=== PATIENT | female | born 1940 | race Caucasian/White ===

== ENCOUNTER 2016-08-11 12:29 | Emergency (ER) | payer MEDICARE, BC ==
--- NOTE | 2016-08-11 13:34 | ERRECORD ---
[facility] EMERGENCY RECORD HPI URI (13:11 BGOE) CHIEF COMPLAINT: Patient presents for evaluation of nasal congestion, Patient presents for evaluation of cough. HISTORIAN: History provided by patient, flu like symptoms started yesterday. f/c/aches/jensen/cough. shima po. fatigue. did get flu shot but has had recent exposure. LOCATION: Symptoms are generalized. QUALITY: Pain is dull in nature, described as aching. SEVERITY: Maximum severity of symptoms mild, Currently symptoms are mild. TIME COURSE: Sudden onset of symptoms, There has been no change in the patient's symptoms over time. ASSOCIATED WITH: No associated chest pain, Associated with chills, Associated with fever, Associated with headache, No associated neck pain, No associated shortness of breath. EXACERBATED BY: Patient's condition exacerbated by nothing. RELIEVED BY: Patient's condition relieved by nothing. ROS (13:12 BGOE) CONSTITUTIONAL: Historian reports chills, reports fatigue, reports fever. EYES: Negative eye review of systems. ENT: Historian reports rhinorrhea, reports sore throat. CARDIOVASCULAR: Historian denies chest pain. RESPIRATORY: Historian reports cough. GI: Historian denies abdominal pain. NEUROLOGIC: Historian denies dizziness. PSYCHIATRIC: Negative psychiatric review of systems. PAST MEDICAL HISTORY MEDICAL HISTORY: Past medical history includes gastrointestinal disease, diverticulosis, Past medical history includes history of hypertension, which has been treated, Patient is compliant, Past medical history includes renal disease, kidney stone(s). ([facility] Aug 11, 2016 12:41 JPER) FEMALE SURGICAL HISTORY: KIDNEY STENTS, Surgical history of appendectomy, Surgical history of cholecystectomy, Surgical history of hysterectomy. ([facility] Aug 11, 2016 12:41 JPER) PSYCHIATRIC HISTORY: Notes: DENIES. ([facility] Aug 11, 2016 12:41 JPER) SOCIAL HISTORY: Patient denies alcohol use, Patient denies drug use, Patient has no smoking history. ([facility] Aug 11, 2016 12:41 JPER) NOTES: Nursing records reviewed, Agree with nursing records, Medication list reviewed. (13:14 BGOE) KNOWN ALLERGIES ALLERGIES: (Unconfirmed) Codeine (Unconfirmed) &a-1R&a+25V*p+0X*f6676R*c152B*c15G*c2P*p-0X&a-25V&a+1RName: Sylvia Lama : 1940 F75 MedRec: [id number] AcctNum: [id number] Prepared: Sat Aug 11, 2016 13:58 by Interface Page 1 of 3 pMD [facility] EMERGENCY RECORD codeine sulfate: Reaction: Hives FOOD ALLERGIES: (Unconfirmed) LATEX ALLERGY? (Unconfirmed) CURRENT MEDICATIONS (12:42 JPER) lisinopril: TABLET : Strength - 10 mg : ORAL Patient Dose: 5 once a day (in the morning). VITAL SIGNS VITAL SIGNS: BP: 170/90, Pulse: 102, Resp: 20, Temp: 99.6 (Oral), O2 sat: 97 on Room Air, Time: 08/11/2016 12:38. (12:38 JPER) BP: 165/84, Pulse: 96, Resp: 20, Temp: 99.6, O2 sat: 97 on RA, Time: 08/11/2016 13:20. (13:20 JPER) PHYSICAL EXAM (13:13 BGOE) CONSTITUTIONAL: Patient afebrile, Pulse, Blood pressure, Respiratory rate normal, Patient appears non toxic, Patient appears pain free, Patient alert and oriented to person, place and time. HEAD: Head exam included findings of head atraumatic, normocephalic. EYES: Eye exam included findings of eyelids normal to inspection, Pupils equally round and reactive to light, Extraocular muscles intact. ENT: Ear exam normal, Nose exam included findings of, rhinorrhea, Pharynx, injected bilaterally. NECK: Neck exam included findings of normal range of motion, Trachea midline. RESPIRATORY CHEST: Respiratory and chest exam normal, Breath sounds clear. CARDIOVASCULAR: Cardiovascular exam included findings of heart rate regular rate and rhythm, Heart sounds normal. ABDOMEN FEMALE: Abdominal exam included findings of abdomen nontender, Bowel sounds normal. BACK: Back exam normal. UPPER EXTREMITY: Upper extremity exam included findings of inspection normal, Range of motion normal. LOWER EXTREMITY: Lower extremity exam included findings of inspection normal, Range of motion normal. NEURO: Neuro exam findings include patient oriented to person, place and time, Speech normal, Gait normal. SKIN: Skin exam included findings of skin warm, dry, and normal in color. LYMPHATIC: Lymphatic exam included findings of cervical nodes normal. PSYCHIATRIC: Psychiatric exam normal, Psychiatric exam included findings of patient oriented to person place and time. DOCTOR NOTES (13:16 BGOE) &a-1R&a+25V*p+0X*m3965J*c152B*c15G*c2P*p-0X&a-25V&a+1RName: Sylvia Lama : 1940 F75 MedRec: [id number] AcctNum: [id number] Prepared: Jann Aug 11, 2016 13:58 by Interface Page 2 of 3 pMD [facility] EMERGENCY RECORD TEXT: given history and exposure will treat for presumed flu. PATIENT PLAN: The patient will be discharged, The patient will follow up with primary care physician. PROBLEM LIST No recorded problems DIAGNOSIS (13:14 BGOE) FINAL: PRIMARY: viral syndrome, ADDITIONAL: Hypertension. PRESCRIPTION (13:15 BGOE) promethazine-DM: SYRUP : : ORAL : Quantity: 5 Unit: mL Route: ORAL Schedule: every 6 hours PRN Dispense: 120 Unit: mL May substitute. Refills: No Refills . NOTES: 5-10 mL PO every 6 hrs prn cough/congestion No Refills. Tamiflu: CAPSULE : 75 mg : ORAL : Quantity: 1 Unit: cap(s) Route: ORAL Schedule: 2 times a day (before meals) Dispense: 10 Unit: cap(s) May substitute. Refills: No Refills . NOTES: No Refills. DISPOSITION PATIENT: Disposition Type: Discharge, Disposition: *Discharge Home, Condition: Good. (13:16 BGOE) Patient left the department. (13:30 JPER) Gandhi: BGOE=MD Marcia, Fritz JPER=TULIO Callaway, Fifi &a-1R&a+25V*p+0X*m5265V*c152B*c15G*c2P*p-0X&a-25V&a+1RName: Sylvia Lama : 1940 F75 MedRec: [id number] AcctNum: [id number] Prepared: Jann Aug 11, 2016 13:58 by Interface Page 3 of 3 pMD MTDD
--- NOTE | 2016-08-11 13:41 | PICIS ---
[facility] EMERGENCY RECORD TRIAGE ([facility] Aug 11, 2016 12:41 JPER) PATIENT: NAME: Sylvia Lama, AGE: 75, GENDER: female, : Sat1940, TIME OF GREET: SatAug 11, 2016 12:29, PREFERRED LANGUAGE: Lao, RACE: WHITE, ETHNICITY: Not or , ECODE BILLING MAP: [facility], SSN: [id number], Zip Code: [address], KG WEIGHT: 63.50, PHONE: , , , PERSON ID: [id number], PCP: Shaka LINDO MARK. ([facility] Aug 11, 2016 12:41 JPER) COMPLAINT: FLU LIKE SYMPTOMS. ([facility] Aug 11, 2016 12:41 JPER) ADMISSION: URGENCY: 4 Non Urgent, ADMISSION SOURCE: Work, TRANSPORT: Walk-in, BED: ED -03. ([facility] Aug 11, 2016 12:41 JPER) ASSESSMENT: Assessment: COUGH OCC PRODUCTIVE OF YELLOW GREEN MUCUS; BODYACHES; FEVER AND HEADACHE X 2 DAYS WORSENING. ([facility] Aug 11, 2016 12:41 JPER) PAIN: Location GENERALIZED, No aggravating factors, No relieving factors. ([facility] Aug 11, 2016 12:41 JPER) IMMUNIZATIONS: Flu vaccine up to date, Tetanus immunization up to date, Pneumococcal vaccine up to date. ([facility] Aug 11, 2016 12:41 JPER) SIRS SCORING: Heart Rate 55-109 (0), Temp range 96.8-101.1 (0), respiratory rate 12-24 (0), Mental Status altered: no (0). ([facility] Aug 11, 2016 12:41 JPER) TRIAGE SCREENING: Patient denies suicidal ideation, Patient denies presence of domestic violence. ([facility] Aug 11, 2016 12:41 JPER) PROVIDERS: TRIAGE NURSE: Fifi Callaway RN. ([facility] Aug 11, 2016 12:41 JPER) VITAL SIGNS: BP 170/90, Pulse 102, Resp 20, Temp 99.6, (Oral), O2 Sat 97, on Room Air, Time 08/11/2016 12:38. (12:38 JPER) PREVIOUS VISIT ALLERGIES: Codeine. ([facility] Aug 11, 2016 12:41 JPER) KNOWN ALLERGIES ALLERGIES: (Unconfirmed) Codeine (Unconfirmed) codeine sulfate: Reaction: Hives FOOD ALLERGIES: (Unconfirmed) LATEX ALLERGY? (Unconfirmed) CURRENT MEDICATIONS (12:42 JPER) lisinopril: TABLET : Strength - 10 mg : ORAL Patient Dose: 5 once a day (in the morning). VITAL SIGNS VITAL SIGNS: BP: 170/90, Pulse: 102, Resp: 20, Temp: 99.6 (Oral), O2 sat: 97 on Room Air, Time: 08/11/2016 12:38. (12:38 JPER) BP: 165/84, Pulse: 96, Resp: 20, Temp: 99.6, O2 sat: 97 on RA, Time: 08/11/2016 13:20. (13:20 JPER) NURSING ASSESSMENT: RESPIRATORY /CHEST (12:45 JPER) CONSTITUTIONAL: Patient arrives ambulatory, Gait steady, History obtained from patient, Patient appears, generally ill, Patient cooperative, Patient alert, Oriented to person, place and &a-1R&a+25V*p+0X*y9570F*c152B*c15G*c2P*p-0X&a-25V&a+1RName: Sylvia Lama : 1940 F75 MedRec: [id number] AcctNum: [id number] Prepared: Sat Aug 11, 2016 14:05 by Interface Page 1 of 5 pMD [facility] EMERGENCY RECORD time, Skin warm, Skin dry, Skin normal in color, Mucous membranes pink, Mucous membranes moist, Patient is well-groomed, Patient complains of COUGH / FEVER / HEADACHE X 2 DAYS. PAIN: GENERALIZED BODY ACHES. RESPIRATORY/CHEST: Lungs auscultated, Respiratory assessment findings include respiratory effort easy, Respirations regular, Conversing normally, Neck and chest exam findings include trachea midline, Chest expansion equal, Chest movement symmetrical, Associated with cough, OCC PROD OF YELLOW GREEN SPUTUM, Associated with fever, Maximum temperature 102, oral, Notes: UPPER AIRWAY CONGESTION NOTED THAT IS ONLY PARTIALLY CLEARED WITH COUGH. ENT: Able to swallow, Speech normal. NOTES: Emotional support needed and given. NURSING PROCEDURE: DISCHARGE NOTE (13:20 JPER) DISCHARGE: Patient discharged to home, ambulating without assistance, driving self, unaccompanied, Summary of Care printed/ provided, Patient requested and was provided an electronic copy of Discharge Instructions, Transition record given to patient, Discharge instructions given to patient, Prescriptions given and instructions on side effects given, Above person(s) verbalized understanding of discharge instructions and follow-up care, Patient treated and evaluated by physician. BELONGINGS: Belongings remain with patient, Valuables remain with patient. NOTES: Emotional support needed and given, Patient tolerated procedure well. SAFETY: Side rails up, Cart/Stretcher in lowest position, Family at bedside, Call light within reach, Hospital ID band on. VITAL SIGNS: BP: 165, / 84, Pulse: 96, Resp: 20, Temp: 99.6, O2 sat: 97, on: RA. HPI URI (13:11 BGOE) CHIEF COMPLAINT: Patient presents for evaluation of nasal congestion, Patient presents for evaluation of cough. HISTORIAN: History provided by patient, flu like symptoms started yesterday. f/c/aches/jensen/cough. shima po. fatigue. did get flu shot but has had recent exposure. LOCATION: Symptoms are generalized. QUALITY: Pain is dull in nature, described as aching. SEVERITY: Maximum severity of symptoms mild, Currently symptoms are mild. TIME COURSE: Sudden onset of symptoms, There has been no change in the patient's symptoms over time. ASSOCIATED WITH: No associated chest pain, Associated with chills, Associated with fever, Associated with headache, No associated neck pain, No associated shortness of breath. EXACERBATED BY: Patient's condition exacerbated by nothing. RELIEVED BY: Patient's condition relieved by nothing. &a-1R&a+25V*p+0X*o7084I*c152B*c15G*c2P*p-0X&a-25V&a+1RName: Sylvia Lama Pra[place] : 1940 F75 MedRec: [id number] AcctNum: [id number] Prepared: Sat Aug 11, 2016 14:05 by Interface Page 2 of 5 pMD [facility] EMERGENCY RECORD ROS (13:12 BGOE) CONSTITUTIONAL: Historian reports chills, reports fatigue, reports fever. EYES: Negative eye review of systems. ENT: Historian reports rhinorrhea, reports sore throat. CARDIOVASCULAR: Historian denies chest pain. RESPIRATORY: Historian reports cough. GI: Historian denies abdominal pain. NEUROLOGIC: Historian denies dizziness. PSYCHIATRIC: Negative psychiatric review of systems. PAST MEDICAL HISTORY MEDICAL HISTORY: Past medical history includes gastrointestinal disease, diverticulosis, Past medical history includes history of hypertension, which has been treated, Patient is compliant, Past medical history includes renal disease, kidney stone(s). ([facility] Aug 11, 2016 12:41 JPER) FEMALE SURGICAL HISTORY: KIDNEY STENTS, Surgical history of appendectomy, Surgical history of cholecystectomy, Surgical history of hysterectomy. ([facility] Aug 11, 2016 12:41 JPER) PSYCHIATRIC HISTORY: Notes: DENIES. ([facility] Aug 11, 2016 12:41 JPER) SOCIAL HISTORY: Patient denies alcohol use, Patient denies drug use, Patient has no smoking history. ([facility] Aug 11, 2016 12:41 JPER) NOTES: Nursing records reviewed, Agree with nursing records, Medication list reviewed. (13:14 BGOE) PHYSICAL EXAM (13:13 BGOE) CONSTITUTIONAL: Patient afebrile, Pulse, Blood pressure, Respiratory rate normal, Patient appears non toxic, Patient appears pain free, Patient alert and oriented to person, place and time. HEAD: Head exam included findings of head atraumatic, normocephalic. EYES: Eye exam included findings of eyelids normal to inspection, Pupils equally round and reactive to light, Extraocular muscles intact. ENT: Ear exam normal, Nose exam included findings of, rhinorrhea, Pharynx, injected bilaterally. NECK: Neck exam included findings of normal range of motion, Trachea midline. RESPIRATORY CHEST: Respiratory and chest exam normal, Breath sounds clear. CARDIOVASCULAR: Cardiovascular exam included findings of heart rate regular rate and rhythm, Heart sounds normal. ABDOMEN FEMALE: Abdominal exam included findings of abdomen nontender, Bowel sounds normal. &a-1R&a+25V*p+0X*p7208U*c152B*c15G*c2P*p-0X&a-25V&a+1RName: [place] mart[place] Bas[place] : 1940 F75 MedRec: [id number] AcctNum: [id number] Prepared: [facility] Aug 11, 2016 14:05 by Interface Page 3 of 5 pMD [facility] EMERGENCY RECORD BACK: Back exam normal. UPPER EXTREMITY: Upper extremity exam included findings of inspection normal, Range of motion normal. LOWER EXTREMITY: Lower extremity exam included findings of inspection normal, Range of motion normal. NEURO: Neuro exam findings include patient oriented to person, place and time, Speech normal, Gait normal. SKIN: Skin exam included findings of skin warm, dry, and normal in color. LYMPHATIC: Lymphatic exam included findings of cervical nodes normal. PSYCHIATRIC: Psychiatric exam normal, Psychiatric exam included findings of patient oriented to person place and time. EVENTS TRANSFER: Triage to Emergency Main ED -03. (Sat Aug 11, 2016 12:41 JPER) Removed from Emergency Main ED -03. (13:30 JPER) O2SAT INTERPRETATION (13:14 BGOE) O2SAT: Single pulse oximetry, Oxygen saturation interpretation: Normal. DOCTOR NOTES (13:16 BGOE) TEXT: given history and exposure will treat for presumed flu. PATIENT PLAN: The patient will be discharged, The patient will follow up with primary care physician. PROBLEM LIST No recorded problems DIAGNOSIS (13:14 BGOE) FINAL: PRIMARY: viral syndrome, ADDITIONAL: Hypertension. DISPOSITION PATIENT: Disposition Type: Discharge, Disposition: *Discharge Home, Condition: Good. (13:16 BGOE) Patient left the department. (13:30 JPER) INSTRUCTION (13:16 BGOE) DISCHARGE: INFLUENZA (ADULT). FOLLOWUP: Shaka LINDO, MAGALI, Internal Medicine, [address] [place] [address] [address] [facility] [id number], [phone], Follow up with Primary Care Physician in 1-2 days. SPECIAL: rest/hydration Tylenol or Advil for Pain Follow-up with your PCP. PRESCRIPTION (13:15 BGOE) &a-1R&a+25V*p+0X*z8511L*c152B*c15G*c2P*p-0X&a-25V&a+1RName: Sylvia Lama : 1940 F75 MedRec: [id number] AcctNum: [id number] Prepared: Sat Aug 11, 2016 14:05 by Interface Page 4 of 5 pMD [facility] EMERGENCY RECORD promethazine-DM: SYRUP : : ORAL : Quantity: 5 Unit: mL Route: ORAL Schedule: every 6 hours PRN Dispense: 120 Unit: mL May substitute. Refills: No Refills . NOTES: 5-10 mL PO every 6 hrs prn cough/congestion No Refills. Tamiflu: CAPSULE : 75 mg : ORAL : Quantity: 1 Unit: cap(s) Route: ORAL Schedule: 2 times a day (before meals) Dispense: 10 Unit: cap(s) May substitute. Refills: No Refills . NOTES: No Refills. IMAGING WORK/SCHOOL RELEASE: Image captured from scanner. (13:19 JPER) *DISCHARGE INSTRUCTIONS RECEIPT: Image captured from scanner. (13:24 JPER) *SUPPLY CHARGE SHEET: Image captured from scanner. (13:24 JPER) ADMIN DIGITAL SIGNATURE: TULIO Callaway Jana. (13:28 JPER) MD Kennedy Brian. (13:55 BGOE) Gandhi: BGOE=MD Kennedy Brian JPER=TULIO Callaway Jana &a-1R&a+25V*p+0X*f9323J*c152B*c15G*c2P*p-0X&a-25V&a+1RName: Sylvia Lama : 1940 F75 MedRec: [id number] AcctNum: [id number] Prepared: Jann Aug 11, 2016 14:05 by Interface Page 5 of 5 pMD MTDD
[2016-08-11] MEDS ORDERED: Ketorolac Tromethamine 60 MG/2 ML VIAL ONE (17:10)
== END 2016-08-11 13:20 | disposition home or self-care (01) ==
LOC: MADERS 12:29
DX: B34.9 Viral infection, unspecified (principal); I10 Essential (primary) hypertension; Z90.49 Acquired absence of other specified parts of digestive tract; Z90.710 Acquired absence of both cervix and uterus
CPT/HCPCS: 99283; J1885

== ENCOUNTER 2018-10-11 02:34 | Emergency (ER) | payer MEDICARE, BC ==
[2018-10-11] MEDS ORDERED: Ibuprofen 600 MG TAB ONE (03:26)
[2018-10-11] MEDS ORDERED: Oseltamivir 75 MG CAP ONE (03:52)
--- NOTE | 2018-10-11 08:19 | RAD ---
TWO VIEWS OF THE CHEST: COMPARISON: None. HISTORY: Cough. FINDINGS: Two views of the chest show normal sized cardiomediastinal silhouette. There is no evidence of consol idation, mass, or pleural effusion. Degenerative changes are seen in the spine. IMPRESSION: No evidence of acute cardiopulmonary disease. POS: [facility]
== END 2018-10-11 04:00 | disposition home or self-care (01) ==
LOC: MADERS 02:34
DX: J11.1 Influenza due to unidentified influenza virus with other respiratory manifestations (principal); I10 Essential (primary) hypertension; Z79.899 Other long term (current) drug therapy
CPT/HCPCS: 71046